=== PATIENT | female | born 1945 | race Caucasian/White ===

== ENCOUNTER → 2016-10-26 | Outpatient (CLI) | payer OTHER ==
[~2016-10-26] MED LIST: ALPR0.5T10 PO; CALC-570 PO; ESTR1.5T4 PO; FURO40TA6 PO; GLUC1500 PO; LIDOCAINE 1%, 2ML ONE; LOVA40TA2 PO; METH750T2 PO; MOME13HF2 PO; NITR100C57 PO; OMEP-110 PO; ONDA4TAB10 PO; OXYB5TAB7 PO
== END | disposition home or self-care (01) ==
LOC: CFH 13:29
PROVIDERS: ATTEND Family Medicine
DX: R13.10 Dysphagia, unspecified (principal)
CPT/HCPCS: 76536

== ENCOUNTER → 2016-12-21 | Outpatient (CLI) | payer OTHER ==
[~2016-12-21] MED LIST changes: -LIDOCAINE 1%, 2ML ONE
== END | disposition home or self-care (01) ==
LOC: RAD 09:21
PROVIDERS: ATTEND Internal Medicine Gastroenterology
DX: R13.12 Dysphagia, oropharyngeal phase (principal)
CPT/HCPCS: 74230

== ENCOUNTER → 2017-04-21 | Outpatient (CLI) | payer OTHER | LOC: CFH 10:29 | PROVIDERS: ATTEND Family Medicine | DX: Z12.31 Encounter for screening mammogram for malignant neoplasm of breast (principal); Z80.3 Family history of malignant neoplasm of breast | CPT/HCPCS: 77067 ==

== ENCOUNTER → 2017-06-16 | Outpatient (CLI) | payer OTHER ==
[~2017-06-16] MED LIST changes: -GLUC1500 PO; +GLUC15006 PO
== END | disposition home or self-care (01) ==
LOC: CFH 09:34
PROVIDERS: ATTEND Family Medicine
DX: Z13.820 Encounter for screening for osteoporosis (principal); M85.88 Other specified disorders of bone density and structure, other site; N95.1 Menopausal and female climacteric states
CPT/HCPCS: 77080

== ENCOUNTER → 2018-03-07 | Outpatient (CLI) | payer OTHER | END | disposition home or self-care (01) | LOC: CFH 08:21 | PROVIDERS: ATTEND Family Medicine | DX: R59.0 Localized enlarged lymph nodes (principal) | CPT/HCPCS: 71250 ==

== ENCOUNTER → 2018-05-29 | Outpatient (CLI) | payer OTHER ==
[~2018-05-29] MED LIST changes: +OMNIPAQUE 350 MG/ML, 100ML BOTTLE ONE
== END | disposition home or self-care (01) ==
LOC: RAD 14:50
PROVIDERS: ATTEND Internal Medicine Critical Care Medicine
DX: I51.7 Cardiomegaly (principal); R59.1 Generalized enlarged lymph nodes; J98.4 Other disorders of lung
CPT/HCPCS: 0399T; 71260; 93306; Q9967

== ENCOUNTER → 2018-10-11 | Outpatient (CLI) | payer OTHER ==
[~2018-10-11] MED LIST changes: -OMNIPAQUE 350 MG/ML, 100ML BOTTLE ONE
== END | disposition home or self-care (01) ==
LOC: PETCFH 09:41
PROVIDERS: ATTEND Internal Medicine Critical Care Medicine
DX: I35.8 Other nonrheumatic aortic valve disorders (principal); I10 Essential (primary) hypertension; E78.5 Hyperlipidemia, unspecified
CPT/HCPCS: 93306

== ENCOUNTER → 2018-10-13 | Outpatient (CLI) | payer OTHER | END | disposition home or self-care (01) | LOC: PETCFH 08:14 | PROVIDERS: ATTEND Internal Medicine Critical Care Medicine | DX: R59.1 Generalized enlarged lymph nodes (principal) | CPT/HCPCS: 78815; A9552 ==

== ENCOUNTER 2019-02-27 12:47 | Outpatient (CLI) | payer OTHER ==
[~2019-02-27 12:47] MED LIST changes: +OXYB5TAB10 PO; -OXYB5TAB7 PO
== END 2019-02-27 23:59 | disposition home or self-care (01) ==
LOC: CFH 12:47
PROVIDERS: ATTEND Internal Medicine Cardiovascular Disease
DX: I51.7 Cardiomegaly (principal)
CPT/HCPCS: 78452; 93017; A9502

== ENCOUNTER → 2019-12-15 | Outpatient (CLI) | payer OTHER | END | disposition home or self-care (01) | LOC: RAD 12:33 | PROVIDERS: ATTEND Family Medicine | DX: S23.420A Sprain of sternoclavicular (joint) (ligament), initial encounter (principal); M25.811 Other specified joint disorders, right shoulder; X58.XXXA Exposure to other specified factors, initial encounter; Y93.89 Activity, other specified; Y92.89 Other specified places as the place of occurrence of the external cause; Y99.8 Other external cause status | CPT/HCPCS: 71120 ==

== ENCOUNTER 2020-07-21 13:01 | Outpatient (CLI) | payer OTHER ==
[~2020-07-21 13:01] MED LIST changes: +METH-640 PO; -METH750T2 PO
[2020-07-21] MEDS ORDERED: TOPI25TA8 PO (14:04)
[2020-07-21] MEDS ORDERED: ATOR20TA37 PO (14:04)
[2020-07-21] MEDS ORDERED: PHEN15CA2 PO (14:04)
[2020-07-21] MEDS ORDERED: SERT50TA28 PO (14:04)
[2020-07-21] MEDS ORDERED: POTASSIUM PO (14:04)
[2020-07-21] MEDS ORDERED: TRAM50TA2 PO (14:04)
[2020-07-21] MEDS ORDERED: MULT-658 PO (14:04)
[2020-07-21] MEDS ORDERED: GLUC1TAB9 PO (14:04)
[2020-07-21] MEDS ORDERED: METF500T27 PO (14:04)
[2020-07-21] MEDS ORDERED: RED600CA2 PO (14:04)
[2020-07-21] MEDS ORDERED: BIOT25005 PO (14:04)
[2020-07-21] MEDS ORDERED: SUMA20SP2 NAS (14:04)
[2020-07-21] MEDS ORDERED: ROPI0.254 PO (14:04)
[2020-07-21] MEDS ORDERED: MELA5TAB14 PO (14:04)
[2020-07-21] MEDS ORDERED: LEVO75TA5 PO (14:04)
[2020-07-21] MEDS ORDERED: ESTR1TAB15 PO (14:04)
[2020-07-21] MEDS ORDERED: DILT120C83 PO (14:04)
[2020-07-21] MEDS ORDERED: BENADRYL PO (14:04)
[2020-07-21] MEDS ORDERED: FERR324T5 PO (14:04)
[2020-07-21] MEDS ORDERED: ACET-1600 PO (14:04)
[2020-07-21] MEDS ORDERED: SUMA25TA4 PO (14:04)
[2020-07-21] MEDS ORDERED: ASCO500T8 PO (14:04)
[2020-07-21 14:21] LABS: BASOPHILS % (AUTO) 1 % (0-1); EOSINOPHILS % (AUTO) 4 % (1-7); LYMPHOCYTES % (AUTO) 34 % (22-44); MEAN CORPUSCULAR HEMOGLOBIN 33.1 pg (27.0-34.8); MEAN PLATELET VOLUME 8.3 fL (7.4-10.4); MONOCYTES % (AUTO) 12 % (2-9); NEUTROPHILS % (AUTO) 50 % (42-75); PLATELET COUNT 209 x10^3/uL (130-400); RED BLOOD COUNT 4.49 x10^6/uL (3.82-5.3); RED CELL DISTRIBUTION WIDTH 13.2 % (9.6-15.2)
[2020-07-21 14:22] LABS: MD NO
[2020-07-21 14:26] LABS: ALANINE AMINOTRANSFERASE 14 U/L (12-78); ALBUMIN 3.6 g/dL (3.4-5.0); ANION GAP 7 mmol/L (5-15); CALCIUM 9.4 mg/dL (8.5-10.1); CHLORIDE 105 mmol/L (98-107); CREATININE 0.72 mg/dL (0.55-1.02)
[2020-07-21 14:29] LABS: ALKALINE PHOSPHATASE 99 U/L (45-117); BILIRUBIN,TOTAL 0.5 mg/dL (0.2-1.0); TOTAL PROTEIN 7.4 g/dL (6.4-8.2)
[2020-07-21 14:32] LABS: INTERNATIONAL NORMALIZED RATIO 0.96 (0.93-1.1); PROTHROMBIN TIME 10.3 Seconds (9.6-11.5)
== END 2020-07-21 23:59 | disposition home or self-care (01) ==
LOC: STAR 13:01
PROVIDERS: ATTEND Orthopaedic Surgery
DX: Z01.812 Encounter for preprocedural laboratory examination (principal); Z20.822 Contact with and (suspected) exposure to COVID-19; M17.11 Unilateral primary osteoarthritis, right knee; I51.7 Cardiomegaly; Z79.01 Long term (current) use of anticoagulants
CPT/HCPCS: 36415; 80053; 83036; 85025; 85610; 85730; 87081; 87147; 93005; U0003

== ENCOUNTER 2020-07-25 09:45 | Day surgery (SDC) | payer OTHER ==
[~2020-07-25] VITALS: Ht 165.1 cm; Wt 101.4 kg
[~2020-07-25 09:45] MED LIST changes: +ACET-1600 PO; +ACETAMINOPHEN 650 MG/20.3 ML UDC PO PRN; +ASCO500T8 PO; +ATOR20TA37 PO; +BENADRYL PO; +BIOT25005 PO; +BISACODYL 10 MG SUPP PR PRN; +CEFAZOLIN PMX 2GM/50ML 50 ML IVPB SCH; +DILT120C83 PO; +DIPHENHYDRAMINE 25 MG CAPSULE PO PRN; +DOCUSATE 100 MG CAPSULE PO SCH; +EPINEPHRINE 1 MG/ML, 1ML ONE; +ESTR1TAB15 PO; +FERR324T5 PO; +FUROSEMIDE 40 MG TABLET PO SCH; +GLUC1TAB9 PO; +HYDROcodone/APAP 5/325 TABLET PO PRN; +HYDROmorphone 1 MG/ML, 1ML INJ IV PRN; +KETOROLAC 60 MG/2 ML ONE; +LEVO75TA5 PO; +LEVOTHYROXINE 75 MCG TABLET PO SCH; +MAGNESIUM HYDROXIDE 8%, 30ML UDC PO PRN; +MELA5TAB14 PO; +METF500T27 PO; +MULT-658 PO; +NS + 20MEQ KCL 1,000 ML IV SCH; +ONDANSETRON 2MG/ML, 2ML IV PRN; +ONDANSETRON 4 MG TABLET PO PRN; +OXYcodone IR 5MG TABLET PO PRN; +PHEN15CA2 PO; +POTASSIUM PO; +RED600CA2 PO; +ROPI0.254 PO; +ROPIvacaine/PF 0.5%, 20 ML ONE; +ROPIvacaine/PF 0.5%, 30 ML ONE; +SENNA/DOCUSATE TABLET PO PRN; +SERT50TA28 PO; +SERTRALINE 50MG TABLET PO SCH; +SODIUM CHLORIDE 0.9% 50 ML ONE; +SUMA20SP2 NAS; +SUMA25TA4 PO; +TOPI25TA8 PO; +TOPIRAMATE 25 MG TABLET PO SCH; +TRAM50TA2 PO; +TRANEXAMIC ACID 100 MG/ML, 10ML ONE; +VANCOMYCIN 1,000 MG ONE; +ZOLPIDEM 5MG TABLET PO PRN
[2020-07-25] MEDS ORDERED: ONDANSETRON 2MG/ML, 2ML IVPush PRN (10:00)
[2020-07-25] MEDS ORDERED: HYDROmorphone 1 MG/ML, 1ML INJ IVPush PRN (10:00)
[2020-07-25] MEDS ORDERED: MEPERIDINE/PF 25MG/0.5ML IVPush PRN (10:00)
[2020-07-25] MEDS ORDERED: PROMETHAZINE 25 MG/ML, 1ML IVPush PRN (10:00)
[2020-07-25] MEDS ORDERED: OXYcodone 5 MG/5 ML ORAL.SOL UDC PO PRN (10:00)
[2020-07-25] MEDS ORDERED: LACTATED RINGERS 1,000 ML IV SCH (10:00)
[2020-07-25] MEDS ORDERED: FENTANYL PF 100 MCG/2ML IV PRN (10:00)
[2020-07-25] MEDS ORDERED: CHLORHEXIDINE 15 ML UDC PO ONE (10:00)
[2020-07-25] MEDS ORDERED: ACETAMINOPHEN 500 MG TABLET PO ONE (10:00)
[2020-07-25] MEDS ORDERED: LIDOCAINE-MPF 1%, 2ML INFIL ONE (10:00)
[2020-07-25] MEDS ORDERED: HYDROcodone/APAP 7.5-325MG/15ML UDC PO PRN (10:00)
[2020-07-25] MEDS ORDERED: GABAPENTIN 300 MG CAPSULE PO ONE ×2 (10:00→10:30)
[2020-07-25 10:02] VITALS: BP 146/83
[2020-07-25] MEDS ORDERED: CHLORHEXIDINE 15 ML UDC ONE (10:15)
[2020-07-25] MEDS ORDERED: GABAPENTIN 300 MG CAPSULE ONE (10:16)
[2020-07-25] MEDS ORDERED: ACETAMINOPHEN 500 MG TABLET ONE (10:16)
[2020-07-25] MEDS ORDERED: MIDAZOLAM 1 MG/ML, 2ML ONE (10:51)
[2020-07-25] MEDS ORDERED: FENTANYL PF 100 MCG/2ML ONE ×2 (10:51→14:14)
[2020-07-25] MEDS ORDERED: GLYCOPYRROLATE 0.2MG/1ML, 5ML ONE (12:41)
[2020-07-25] MEDS ORDERED: ONDANSETRON 2MG/ML, 2ML ONE (12:41)
[2020-07-25] MEDS ORDERED: ROCURONIUM 10MG/ML,5ML ONE (12:41)
[2020-07-25] MEDS ORDERED: NEOSTIGMINE 1 MG/ML, 10ML ONE (12:41)
[2020-07-25] MEDS ORDERED: SUCCINYLCHOLINE 20 MG/ML, 10ML ONE (12:41)
[2020-07-25] MEDS ORDERED: CEFAZOLIN 1,000 MG ONE (12:41)
[2020-07-25] MEDS ORDERED: PROPOFOL 10 MG/ML, 20ML ONE (12:41)
[2020-07-25] MEDS ORDERED: DEXAMETHASONE 4 MG/ML, 1ML ONE (12:41)
[2020-07-25] MEDS ORDERED: ASPIRIN 81 MG TABLET EC PO SCH (18:00)
[2020-07-25] MEDS ORDERED: DILTIAZEM 120 MG CAP.ER.24H PO SCH (21:00)
== END 2020-07-25 17:15 | disposition home or self-care (01) ==
LOC: OUT 09:45
PROVIDERS: ATTEND Orthopaedic Surgery
DX: M17.11 Unilateral primary osteoarthritis, right knee (principal); M25.561 Pain in right knee; K21.9 Gastro-esophageal reflux disease without esophagitis; E11.9 Type 2 diabetes mellitus without complications; F32.9 Major depressive disorder, single episode, unspecified; I10 Essential (primary) hypertension; G47.33 Obstructive sleep apnea (adult) (pediatric); G43.909 Migraine, unspecified, not intractable, without status migrainosus; Z88.5 Allergy status to narcotic agent; Z79.899 Other long term (current) drug therapy; Z98.51 Tubal ligation status; Z90.49 Acquired absence of other specified parts of digestive tract; Z98.890 Other specified postprocedural states; Z72.89 Other problems related to lifestyle; Z91.048 Other nonmedicinal substance allergy status
CPT/HCPCS: 27447; 64447; 82962; 97162; 97165; C1713; C1776; J0171; J0330; J0690; J1100; J1885; J2250; J2405; J2704; J2710; J2795; J3010; J3370; J7120

== ENCOUNTER 2020-08-29 17:25 | Emergency (ER) | payer OTHER ==
[~2020-08-29] VITALS: Ht 165.1 cm; Wt 102.2 kg
[~2020-08-29 17:25] MED LIST changes: -ACETAMINOPHEN 650 MG/20.3 ML UDC PO PRN; -BISACODYL 10 MG SUPP PR PRN; -CEFAZOLIN PMX 2GM/50ML 50 ML IVPB SCH; -DIPHENHYDRAMINE 25 MG CAPSULE PO PRN; -DOCUSATE 100 MG CAPSULE PO SCH; -EPINEPHRINE 1 MG/ML, 1ML ONE; -FUROSEMIDE 40 MG TABLET PO SCH; -HYDROcodone/APAP 5/325 TABLET PO PRN; -HYDROmorphone 1 MG/ML, 1ML INJ IV PRN; -KETOROLAC 60 MG/2 ML ONE; -LEVOTHYROXINE 75 MCG TABLET PO SCH; -MAGNESIUM HYDROXIDE 8%, 30ML UDC PO PRN; -NS + 20MEQ KCL 1,000 ML IV SCH; -ONDANSETRON 2MG/ML, 2ML IV PRN; -ONDANSETRON 4 MG TABLET PO PRN; -OXYcodone IR 5MG TABLET PO PRN; -ROPIvacaine/PF 0.5%, 20 ML ONE; -ROPIvacaine/PF 0.5%, 30 ML ONE; -SENNA/DOCUSATE TABLET PO PRN; -SERTRALINE 50MG TABLET PO SCH; -SODIUM CHLORIDE 0.9% 50 ML ONE; -TOPIRAMATE 25 MG TABLET PO SCH; -TRANEXAMIC ACID 100 MG/ML, 10ML ONE; -VANCOMYCIN 1,000 MG ONE; -ZOLPIDEM 5MG TABLET PO PRN
[2020-08-29 18:29] LABS: BASOPHILS % (AUTO) 1 % (0-1); EOSINOPHILS % (AUTO) 8 % (1-7); LYMPHOCYTES % (AUTO) 28 % (22-44); MEAN CORPUSCULAR HEMOGLOBIN 33.1 pg (27.0-34.8); MEAN CORPUSCULAR HGB CONC 33.6 g/dL (32.4-35.8); MEAN PLATELET VOLUME 8.4 fL (7.4-10.4); MONOCYTES % (AUTO) 9 % (2-9); NEUTROPHILS % (AUTO) 54 % (42-75); PLATELET COUNT 197 x10^3/uL (130-400); RED BLOOD COUNT 3.93 x10^6/uL (3.82-5.3); RED CELL DISTRIBUTION WIDTH 13.7 % (9.6-15.2)
[2020-08-29 18:33] LABS: MD NO
[2020-08-29 18:42] LABS: ALANINE AMINOTRANSFERASE 16 U/L (12-78); ALBUMIN 3.3 g/dL (3.4-5.0); ANION GAP 4 mmol/L (5-15); CHLORIDE 108 mmol/L (98-107); CREATININE 0.68 mg/dL (0.55-1.02)
[2020-08-29 18:45] LABS: ALKALINE PHOSPHATASE 108 U/L (45-117); BILIRUBIN,TOTAL 0.3 mg/dL (0.2-1.0); TOTAL PROTEIN 6.9 g/dL (6.4-8.2)
--- NOTE | 2020-08-29 19:38 | NUR ---
ALL RESULTS ARE BACK AT THIS TIME. CHART UP FOR RECHECK.
[2020-08-29 20:41] LABS: HCT (SEDRATE) 38.7 % (34.6-47.8)
--- NOTE | 2020-08-29 20:55 | NUR ---
MED REQUESTED FROM PHARMACY
[2020-08-29] MEDS ORDERED: CEFTRIAXONE 2 GM in DEXTROSE 5% 50 ML IVPB ONE (21:00)
--- NOTE | 2020-08-29 21:04 | NUR ---
ALL RESULTS ARE BACK AT THIS TIME. CHART UP FOR RECHECK. BOWLING OR SKATING FRONT DESK CLERK AT BEDSIDE FOR PIV PLACEMENT.
[2020-08-29 21:05] VITALS: BP 144/65
--- NOTE | 2020-08-29 21:13 | NUR ---
PIV PLACED BY DRIVER UTILITY WORKER. IV ABX STARTED PER
--- NOTE | 2020-08-29 21:24 | NUR ---
ERMD AT BEDSIDE TO UPDATE PT ON POC.
== END 2020-08-29 21:46 | disposition home or self-care (01) ==
LOC: ED 18:00
DX: L03.115 Cellulitis of right lower limb (principal); M79.661 Pain in right lower leg; E78.00 Pure hypercholesterolemia, unspecified; K21.9 Gastro-esophageal reflux disease without esophagitis
CPT/HCPCS: 36415; 73564; 80053; 85025; 85651; 86140; 93971; 96365; 99285; J0696